=== PATIENT | male | born 1940 | race Caucasian/White ===

== ENCOUNTER → 2016-05-18 | Outpatient (CLI) | payer MEDICARE, OTHER ==
[~2016-05-18] MED LIST: AGM500T PEG; ALB.5NB20 HHN; ALBU6.7H IH; AMOX1TAB12 PO; ASP81CT PO; ATN50T PO; BUPR100T8 PO; FLUC100T PO; HYDR-3702 PO; IPRA3AMP11 INH; LEVO137T2 PO; LEVO137T6 PO; LORA10TA7 PO; MPR22TI TOP; OMEG1CAP58 PO; OMEP20CA12 PO; PRED20TA PEG; ROFL500T PO; SILD100T PO; SIMV40TA2 PO; TIOT18CA IH; TIOT4MIS5 IH
== END ==
LOC: EMS 15:25
PROVIDERS: ATTEND Internal Medicine
DX: J69.0 Pneumonitis due to inhalation of food and vomit (principal); Z51.5 Encounter for palliative care